=== PATIENT | male | born 1945 | race Caucasian/White ===

== ENCOUNTER 2021-04-18 10:32 | Day surgery (SDC) | payer MEDICARE ==
[~2021-04-18 10:32] MED LIST: Lactated Ringers 1,000 ML IV SCH; Sodium Chloride 0.9% 10 ML Syringe FLUSH PRN
[2021-04-18] MEDS ORDERED: Lidocaine 2% 5 ML SDV INJECT ONE (10:33)
[2021-04-18] MEDS ORDERED: Glycopyrrolate 0.2 MG/ML 5 ML MDV IV ONE (10:33)
[2021-04-18] MEDS ORDERED: Propofol 200 MG/20 ML SDV IV ONE (10:33)
--- NOTE | 2021-04-18 12:47 | PCM.HPR ---
H & P Addendum review - H & P Addendum Review Date of Original H & P: 04/14/21 Date Reviewed: 04/18/21 Time Reviewed: 12:20 Patient was Examined: No Changes
--- NOTE | 2021-04-18 12:49 | PCM.OPNOTE ---
- General Post-Op/Procedure Note Date of Surgery/Procedure: 04/18/21 Operative Procedure(s): EGD with Bx's Findings: Gastritis and Duodenal Ulcers Pre Op Diagnosis: FE Def Anemia Post-Op Diagnosis: Same Anesthesia Technique: MAC Primary Surgeon: Garland DAUGHERTY in mLs: 1 Complications: None Condition: Good
[2021-04-18 13:37] VITALS: BP 154/80; PULSE 92
--- NOTE | 2021-04-19 16:09 | OR ---
DATE OF OPERATION: 04/18/2021 SURGEON: Garland Steele MD PREOPERATIVE DIAGNOSIS: Iron-deficiency anemia. POSTOPERATIVE DIAGNOSES: 1. Chronic gastritis. 2. Duodenal ulcers. PROCEDURE: Esophagogastroduodenoscopy with biopsies. ANESTHESIA: IV sedation. PROCEDURE IN DETAIL: Patient was brought to the procedure room, where he was placed on his left side and IV sedation administered. Oral bite block was placed and the upper endoscope advanced into the esophagus under direct vision without difficulty. Vocal cords were viewed and were normal. The scope was advanced to the third portion of the duodenum. In the first portion of the duodenum, he has one larger superficial ulcer measuring approximately 8 mm in diameter and a couple of more 6 mm superficial ulcerations. There is no active bleeding, but there is evidence of recent bleeding. Photographs were taken. I did also biopsy the duodenum. The antrum looks like it had some mild chronic gastritis but no ulcers or erosions. I also took 2 biopsies from here and will check for H. pylori. The entire body and fundus showed evidence of chronic gastritis with some small petechial clot areas, but no active bleeding. No ulcers were identified in the stomach. I also took 3 random biopsies from the stomach. Retroflexion was normal. The squamocolumnar junction is normal. There is no evidence of reflux esophagitis. Air was removed from the stomach and the scope withdrawn through the remaining esophagus, which appeared normal. The patient tolerated the procedure well and returned to recovery in stable condition. The patient will be started on omeprazole and follow up with his primary provider in a week for review of pathology report. If H. pylori is present, this should be treated. /[id number] AAKASH/OPAL
== END 2021-04-18 13:26 | disposition home or self-care (01) ==
LOC: FB.SDS 10:32
PROVIDERS: ATTEND Surgery
DX: K29.50 Unspecified chronic gastritis without bleeding (principal); K26.9 Duodenal ulcer, unspecified as acute or chronic, without hemorrhage or perforation; D50.9 Iron deficiency anemia, unspecified; K80.20 Calculus of gallbladder without cholecystitis without obstruction; K31.89 Other diseases of stomach and duodenum
CPT/HCPCS: 00731; 43239; 88305; 88342; J2704; J3490; J7120